=== PATIENT | male | born 1955 | race Caucasian/White ===

== ENCOUNTER → 2017-09-21 | Outpatient (CLI) | payer OTHER ==
[~2017-09-21] VITALS: Ht 165.1 cm; Wt 81.6 kg
[~2017-09-21] MED LIST: AVODART0.5 MG PO; ZESTRIL2.5 MG PO
--- NOTE | ~2017-09-21 | P ---
[facility] [place] [address] PROCEDURE REPORT Name: SYDNEY SUTTON [id number]: 09/21/17 Attend Phys: Idris Fernandes MD Discharge: Date of : 51 Report #: [id number] THIS REPORT FOR: //name// CC: Idris Coronado MD BRIEF HISTORY: The patient is a 62-year-old male for average risk screening colonoscopy. Last colonoscopy was 10 years ago and was normal. PREOPERATIVE DIAGNOSIS: Average risk screening colonoscopy. POSTOPERATIVE DIAGNOSIS: Normal average risk screening colonoscopy. MEDICATIONS: Deep sedation with propofol per anesthesia. SPECIMEN: None. ESTIMATED BLOOD LOSS: None. PROCEDURE: Colonoscopy to cecum. FINDINGS: Prior to propofol sedation, the procedure of colonoscopy discussed with the patient as well as potential risks, benefits, and complications. He indicates he understands and desires to proceed. With the patient in left lateral decubitus position, digital examination was completed, which revealed no abnormalities. Subsequently, the [employer] video colonoscope was introduced in the rectum, advanced under direct vision to the cecum. Done with minimal difficulty. The cecum was identified by the ileocecal valve and the appendiceal orifice. I was able to advance the scope up to the mouth of the ileocecal valve; however, we could not cross the ileocecal valve due to looping of the scope. Villi were seen. At that point, scope was slowly withdrawn and careful circumferential views were obtained. The prep was excellent. The mucosa was within normal limits, normal vascular pattern, and normal light reflex. As we withdrew the scope, he had normal colonic mucosa throughout the colon. No inflammatory or neoplastic changes were seen. The scope was withdrawn in the rectum and examined on end view as well as retroflexed views. No abnormalities were seen. Scope was withdrawn and the patient tolerated the procedure well. CONDITION OF THE PATIENT UPON DISCHARGE: Following procedure, the patient drowsy, aroused, conversant and will be discharged home when fully ambulatory. INSTRUCTIONS TO THE PATIENT AND FAMILY AT THE TIME OF DISCHARGE: No neoplastic lesions seen today. He had a normal average risk screening colonoscopy. I would suggest high fiber diet and I would suggest followup colon exam in [address] [place] [address] [address] [place] [address] PROCEDURE REPORT Name: SYDNEY SUTTON [id number] Admission: 09/21/17 Attend Phys: Idris Fernandes MD Discharge: Date of : 51 Report #: [id number] years for average risk patient. Last colonoscopy 10 years ago. Withdrawal time from the cecum was 11 minutes 58 seconds. <ELECTRONICALLY SIGNED> By: Idris Fernandes MD 09/24/17 [id number] Idris Fernandes MD /nt
== END | disposition home or self-care (01) ==
LOC: GI 07:58
DX: Z12.11 Encounter for screening for malignant neoplasm of colon (principal); I10 Essential (primary) hypertension; N40.1 Benign prostatic hyperplasia with lower urinary tract symptoms; Z98.890 Other specified postprocedural states; Z98.41 Cataract extraction status, right eye; Z98.42 Cataract extraction status, left eye; Z96.1 Presence of intraocular lens; Z79.899 Other long term (current) drug therapy